=== PATIENT | male | born 2000 | race Caucasian/White ===

== ENCOUNTER 2018-11-08 14:38 | Emergency (ER) | payer SELFPAY ==
[2018-11-08 14:39] VITALS: BP 135/80; PULSE 98; RESP 16; TEMP 36.8; O2SAT 100; BMI 23.9
--- NOTE | 2018-11-08 14:59 | ED.RN ---
PT GIRLFRIEND TEXTED POSITIVE FOR CHLAMYDIA, SHE HAS NOT BEEN TX YET. WE ARE WAITING TIL HE GETS TREATED. PT DENIES PENILE DISCHARGE OR PAIN WITH URINATION OR SEX.
[2018-11-08] MEDS: Ondansetron 4 MG/2 ML Vial IV (15:25)
[2018-11-08] MEDS: Ketorolac 30 MG/ML Syringe IV (15:25)
[2018-11-08] MEDS: 0.9% Normal Saline 1,000 ML 1000 ML IV (15:25)
--- NOTE | 2018-11-08 16:43 | ED.DCSUM_ITS ---
- ER Visit Summary Date of Service: 11/08/18 Chief Complaint: Nausea and vomiting History of Present Illness: The patient is a 18 M with no primary care physician. He reports that he and 3 other people ate Telugu food last night and all of them have been vomiting. He states he is vomited multiple times s tori 6 AM. He has aching epigastric pain is 9-10 at worst and 4-10 currently. Is worsened by movement. Is relieved transiently by vomiting. He denies any blood in his emesis. He denies any diarrhea. His last bowel was yesterday. No melena or hematochezia. No dysuria frequency. Patient significant others at bedside. She reports she tested positive for chlamydia last week. He has not been tested or treated. She reports her test for gonorrhea was negative. Physical Examination: Vitals: Stable. Afebrile. General: Well-nourished and well-developed. Head: Normocephalic atraumatic. Neck: Supple, no lymphadenopathy. No JVD. Nontender. Cardiovascular: Regular rate and rhythm. No murmurs. Respiratory: No respiratory distress. Clear to auscultation bilaterally. Abdominal: Soft, mild epigastric tenderness to palpation, nondistended, normal bowel sounds. No guarding, rebound, or peritoneal signs. Back: Nontender. Extremities: Nontender, no edema. Skin: Normal color, no rash. Neurologic: Alert and oriented ?3. Cranial nerves II through XII are intact. Normal strength and sensation. Psych: Normal affect. Emergency Department Course and Treatment: Patient had an IV placed. He was given Toradol and Zofran IV. Is given a liter normal saline. He has had no vomiting while here. He is resting comfortably. Treatment Plan: Patient will be discharged with Zofran and Zithromax for chlamydia. [facility]2 [facility] if not improving. Return to the emergency department for any worsening symptoms. Disposition: To home in improved and stable condition. Impression: 1. Vomiting. 2. Exposure to chlamydia. This note was generated with [employer] software. It may contain incorrect words, spelling, and punctuation that were not noted in review of the chart prior to signing ED Disposition - Plan for ED Patient: Disposition: Home or Assisted Living Chief Complaint: Nausea/Vomiting Instructions: ED Nausea Vomiting Prescriptions: Ondansetron [Zofran Odt] 4 mg PO Q8H PRN PRN #10 tablet PRN Reason: Nausea Azithromycin [Zithromax] 1,000 mg PO DAILY #4 tablet Referrals: Annie Reyes [NON-STAFF] - 1-2 Days if not improving
[2018-11-08 16:53] VITALS: PULSE 96; RESP 18; O2SAT 100
== END 2018-11-08 16:54 | disposition home or self-care (01) ==
PROVIDERS: Emergency Provider Emergency Medicine
DX: R11.2 Nausea with vomiting, unspecified (principal); Z20.2 Contact with and (suspected) exposure to infections with a predominantly sexual mode of transmission; R10.13 Epigastric pain; R51 Headache; R68.83 Chills (without fever); F17.200 Nicotine dependence, unspecified, uncomplicated
CPT/HCPCS: 96361; 96374; 96375; 99283; J7030; A4216; J2405

== ENCOUNTER → 2021-06-25 | Outpatient (CLI) | payer MEDICAID, SELFPAY | END | disposition home or self-care (01) | LOC: LABSPEC 06-26 08:36 | PROVIDERS: Referring Provider Physician Assistant Surgical; Visit Provider Physician Assistant Surgical | DX: Z11.52 Encounter for screening for COVID-19 (principal) | CPT/HCPCS: 87635; U0005; U0003 ==

== ENCOUNTER 2024-05-30 03:44 | Emergency (ER) | payer MEDICAID, SELFPAY ==
[2024-05-30 03:45] VITALS: BP 143/85; PULSE 109; RESP 16; TEMP 37.1; O2SAT 98; BMI 23.2
--- NOTE | 2024-05-30 04:04 | EDS_ITS ---
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 Today he feels like there is something in his left eye. It is painful, red, he is having some watering but no vision changes otherwise. Thinks he saw something in it. The right eye is not bothering him. When he was welding he was not using proper eye protection. Does not use glasses or contacts. PFSH PFSH Medical History COVID-19 Encounter for screening for COVID-19 Home Medications ?Medication ?Instructions ?Recorded ?Last Taken ?Type NK 05/30/24 Unknown History Allergy/AdvReac Type Severity Reaction Status Date / Time No Known Allergies Allergy Verified 05/30/24 03:48 Social History Smoking Status: Current every day smoker tobacco type: e-cigarettes ROS ROS ED Constitutional Constitutional ED: Denies chills or fever(s) Eyes Eyes: Reports as per HPI and eye pain; Denies change in vision ENT ENT ED: Denies ear pain, rhinorrhea or sore throat Neurologic Neurologic: Denies headache(s), paresthesias or weakness EXAM Physical Exam Const Vital Signs: 05/30/24 03:45 Temperature 98.8 F Temperature Source Temporal Pulse Rate 109 H Respiratory Rate 16 Blood Pressure 143/85 H Blood Pressure Mean 104 Pulse Ox 98 Oxygen Delivery Method Room Air Positive well nourished and well developed General Appearance ED: well developed and NAD HEENT atraumatic; Negative for tenderness Mouth ED: Yes oral and palatal mucosa normal and Yes lips normal Mouth: oral and palatal mucosa normal and lips normal Eyes PERRL and EOMs intact bilaterally Eyes Narrative: Diffuse bulbar left eye conjunctival injection. Right eye is normal. Mild photophobia left eye. Under slit-lamp exam, there is a metallic foreign body embedded on the surface of the cornea at approximately 3:00, somewhat peripheral. Anterior chamber is deep and quiet. Neuro oriented x3, CN's II-XII intact bilaterally and gait normal Sensorium / Orientation: alert Skin Lesions: no lesions Rashes: no rashes MDM MDM MDM Narrative Medical decision making narrative: See the procedure note, patient has a small metallic foreign body on the cornea which was removed but I am unable to grind out rust ring. He is given a 1 day supply of tetracaine, polymyxin/bacitracin ophthalmic ointment, and referral to ophthalmology advised to follow-up soon as possible for further evaluation and treatment of the rust ring. Procedures Other Procedures Procedure(s): Left cornea foreign body removal: After 4 drops of tetracaine 1% for local anesthesia successfully, and verbal consent from the patient, an eye natalia was used from a lateral approach to gently lift the metallic foreign body off the cornea, I then irrigated him over a sink with sterile saline to irrigate debris off of the cornea, he was reexamined and seen with fluorescein. Negative Radha sign. No other areas of dye uptake. There is a residual rust ring. Our natalia device has a non-replaceable battery. 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
[2024-05-30] MEDS: Fluorescein 1 MG STRIP 1 STRIP EACH EYE (04:21)
[2024-05-30] MEDS: Tetracaine 0.5% Ophthalmic Bottle 1 DRP EACH EYE (04:21)
[2024-05-30] MEDS: Neomycin/Bacitracin/Polymyxin Opth. Ointment 1 APPLIC LEFT EYE (05:25)
[2024-05-30 05:32] VITALS: BP 139/88; PULSE 92; RESP 16; TEMP 36.6; O2SAT 99
== END 2024-05-30 05:34 | disposition home or self-care (01) ==
PROVIDERS: Emergency Provider Emergency Medicine; Visit Provider Emergency Medicine
DX: T15.02XA Foreign body in cornea, left eye, initial encounter (principal); W44.8XXA Other foreign body entering into or through a natural orifice, initial encounter; Y93.89 Activity, other specified; Y92.009 Unspecified place in unspecified non-institutional (private) residence as the place of occurrence of the external cause; F17.290 Nicotine dependence, other tobacco product, uncomplicated
CPT/HCPCS: 65220; 99283; A4216